=== PATIENT | male | born 1970 | race Caucasian/White ===

== ENCOUNTER → 2022-07-22 08:36 | Outpatient (BNVA) | payer OTHER, SELFPAY | PROVIDERS: Visit Provider Internal Medicine | DX: S61.211A Laceration without foreign body of left index finger without damage to nail, initial encounter (principal); W26.0XXA Contact with knife, initial encounter | CPT/HCPCS: 12001; 99204 ==

== ENCOUNTER → 2022-07-25 13:04 | Outpatient (BNVA) | payer OTHER, SELFPAY | PROVIDERS: Visit Provider Physician Assistant Medical | DX: S61.211A Laceration without foreign body of left index finger without damage to nail, initial encounter (principal); S64.491A Injury of digital nerve of left index finger, initial encounter; W26.0XXA Contact with knife, initial encounter | CPT/HCPCS: 99213 ==

== ENCOUNTER → 2022-08-02 12:57 | Outpatient (BNVA) | payer OTHER, SELFPAY | PROVIDERS: Visit Provider Physician Assistant Medical | DX: Z48.02 Encounter for removal of sutures (principal); S61.211A Laceration without foreign body of left index finger without damage to nail, initial encounter; W26.0XXA Contact with knife, initial encounter | CPT/HCPCS: 99212; 99213 ==